=== PATIENT | female | born 1985 | race Caucasian/White ===

== ENCOUNTER 2016-08-29 13:30 | Emergency (ER) | payer OTHER ==
[2016-08-29 13:46] VITALS: BP 138/90; PULSE 88; TEMP 98.3; BMI 29.2
[2016-08-29] MEDS ORDERED: ACETAMINOPHEN 325 MG TABLET (FP) PO ONE (14:22)
--- NOTE | 2016-08-29 14:22 | PDOC ---
History of Present Illness - General Chief Complaint: Cold Symptoms Stated Complaint: FLU SYMPTOMS, 12 WKS Time Seen by Provider: 08/29/16 14:14 History Source: Patient Exam Limitations: No Limitations - History of Present Illness Initial Comments: CHIEF COMPLAINT: 31 y/o afebrile, approximately 12 week female, c/o frontal headache, sinus pressure, dry cough x 4 days. HISTORY OF PRESENT ILLNESS: The patient denies f/c, runny nose, sore throat, n/ v/d, CP, SOB, abd pain, vaginal bleeding, abnormal vaginal discharge, hematuria , dysuria. SHe has not taken any medications for her symptoms. Vital signs on arrival are within normal limits. REVIEW OF SYSTEMS: GENERAL/CONSTITUTIONAL: No fever/chills. No weakness. No weight change. HEAD, EYES, EARS, NOSE AND THROAT: No change in vision. No ear pain or discharge. No sore throat. +sinus pressure CARDIOVASCULAR: No chest pain or shortness of breath. RESPIRATORY: +dry cough. No wheezing or hemoptysis. GASTROINTESTINAL: No abd pain, nausea, vomiting, diarrhea. GENITOURINARY: No dysuria, frequency, or change in urination. MUSCULOSKELETAL: No joint or muscle swelling or pain. No neck or back pain. SKIN: No rash or easy bruising. NEUROLOGIC: +headache. No vertigo, loss of consciousness, or loss of sensation. PHYSICAL EXAM: GENERAL: The patient is awake, alert, and fully oriented, in no acute distress. SHe is well appearing and ambulatory. No cough while in the ER. HEAD: Normal with no signs of trauma. TTP of frontal and maxillary sinuses. ENT: Pupils equal, round and reactive to light, extraocular movements intact, sclera anicteric, conjunctiva clear. No nasal congestion or rhinorrhea. TMs and ear canals normal b/l. No tonsilar erythema or edema. LUNGS: Clear to auscultation bilaterally. Normal excursion. No respiratory distress or use of accessory muscles. CV: RRR, S1/S2, no MRG. Cap refill < 2 sec. ABDOMEN: Soft, gravid, non-tender even to deep palpation, no hepatomegaly or splenomegaly, no masses. EXTREMITIES: Normal range of motion, no edema. NEUROLOGICAL: Normal speech, normal gait. CN II-XII grossly intact. PSYCH: Normal mood, normal affect. SKIN: Warm, dry, normal turgor, no rashes or lesions noted. Past History - Past Medical History Allergies/Adverse Reactions: Allergies Allergy/AdvReac Type Severity Reaction Status Date / Time No Known Allergies Allergy Verified 08/29/16 13:42 Home Medications: Ambulatory Orders Vits #93/Iron Fum/FA [ Formula Tablet] 1 each PO DAILY Other medical history: DENIES. - Psycho/Social/Smoking Cessation Hx Suicidal Ideation: No Smoking History: Never smoked *Physical Exam - Vital Signs Last Vital Signs Temp Pulse Resp BP Pulse Ox 98.3 F 88 19 138/90 100 08/29/16 13:42 08/29/16 13:42 08/29/16 13:42 08/29/16 13:42 08/29/16 13:42 Medical Decision Making - Medical Decision Making A/P: 31 y/o female with sinus headache and allergy symptoms. Plan is as follows: 1. PO tylenol 2. PO claritin Will discharge to home with instructions to take tylenol for headache, claritin and robitussin for sinus pressure and cough, all of which are safe to use in . Suggested she drink plenty of fluids, follow up with her doctor this week and return to the ER with any worsening or concerning symptoms. The patient verbalizes understanding of all instructions, has no further questions and is awaiting discharge. *DC/Admit/Observation/Transfer Diagnosis at time of Disposition: Seasonal allergies Qualifiers: Allergic rhinitis trigger: unspecified Qualified Code(s): J30.2 - Other seasonal allergic rhinitis Headache Qualifiers: Headache type: unspecified Headache chronicity pattern: acute headache Intractability: not intractable Qualified Code(s): R51 - Headache - Discharge Dispostion Disposition: HOME Condition at time of disposition: Good - Patient Instructions Printed Discharge Instructions: DI for Headache, Allergies (Alternative Therapy ) Additional Instructions: Discharge Instructions: -You can take Tylenol every 4 hours for headache -You can take over the counter Claritin daily for pressure behind your eyes, nasal congestion and cough -You can take Robitussin for cough -Please follow up with your doctor tomorrow -Return to the ER with any worsening or concerning symptoms. Print Language: ZAMBIAN
[2016-08-29] MEDS ORDERED: LORATADINE 10 MG TABLET PO ONE (14:24)
[2016-08-29] MEDS ORDERED: ACETAMINOPHEN 325 MG TABLET (FP) ONE (14:33)
[2016-08-29] MEDS ORDERED: LORATADINE 10 MG TABLET ONE (14:33)
== END 2016-08-29 14:36 | disposition home or self-care (01) ==
LOC: JERFT 13:30
DX: O99.89 Other specified diseases and conditions complicating pregnancy, childbirth and the puerperium (principal); J30.2 Other seasonal allergic rhinitis; R51 Headache; Z3A.12 12 weeks gestation of pregnancy
CPT/HCPCS: 99281-25

== ENCOUNTER 2016-10-12 09:15 | Emergency (ER) | payer OTHER ==
[2016-10-12 09:21] VITALS: BMI 29.9
--- NOTE | 2016-10-12 10:00 | PDOC ---
History of Present Illness - General History Source: Patient Exam Limitations: No Limitations - History of Present Illness Initial Comments: 10/12/16 10:00 The patient is a 31 year old female presenting with her who is 17 weeks , A2 (1 ectopic ), with a significant past medical history of, who presents to the emergency department with vaginal bleeding. She also reports mild left lower abdominal pain, without radiation or modifying factors. She denies any history of C-Sections and notes her births have been vaginal. She notes that her ectopic was in 03/2016 and she was medically treated, not requiring surgery. The patient denies chest pain, shortness of breath, headache and dizziness. Denies fever, chills, nausea, vomit, diarrhea and constipation. Denies dysuria, frequency, urgency and hematuria. Allergies: None Past surgical history: None reported Social history: No alcohol, tobacco or drug use reported <Caden Keith - Last Filed: 10/12/16 10:00> <Sis Landa - Last Filed: 10/12/16 16:48> - General Chief Complaint: Vaginal Bleeding Stated Complaint: VAGINAL BLEEDING (17 WKS ) Time Seen by Provider: 10/12/16 09:26 Past History <Caden Keith - Last Filed: 10/12/16 10:00> - Past Medical History Other medical history: none - Reproductive History Is Patient Now?: Yes (17 wks) - Psycho/Social/Smoking Cessation Hx Anxiety: No Suicidal Ideation: No Smoking History: Never smoked Have you smoked in the past 12 months: No Information on smoking cessation initiated: No Hx Alcohol Use: No Drug/Substance Use Hx: No <Sis Landa - Last Filed: 10/12/16 16:48> - Past Medical History Allergies/Adverse Reactions: Allergies Allergy/AdvReac Type Severity Reaction Status Date / Time No Known Allergies Allergy Verified 10/12/16 09:18 Home Medications: Ambulatory Orders Vits #93/Iron Fum/FA [ Formula Tablet] 1 each PO DAILY Review of Systems - Review of Systems Comments:: 10/12/16 10:01 GENERAL/CONSTITUTIONAL: No fever or chills. No weakness. HEAD, EYES, EARS, NOSE AND THROAT: No change in vision. No ear pain or discharge. No sore throat. CARDIOVASCULAR: No chest pain or shortness of breath RESPIRATORY: No cough, wheezing, or hemoptysis. GASTROINTESTINAL: No nausea, vomiting, diarrhea or constipation. GENITOURINARY: (+) Vaginal bleeding. No dysuria, frequency, or change in urination. MUSCULOSKELETAL: No joint or muscle swelling or pain. No neck or back pain. SKIN: No rash NEUROLOGIC: No headache, vertigo, loss of consciousness, or change in strength/ sensation. ENDOCRINE: No increased thirst. No abnormal weight change HEMATOLOGIC/LYMPHATIC: No anemia, easy bleeding, or history of blood clots. ALLERGIC/IMMUNOLOGIC: No hives or skin allergy. <Caden Keith - Last Filed: 10/12/16 10:00> *Physical Exam - Vital Signs Last Vital Signs Temp Pulse Resp BP Pulse Ox 98.1 F 100 H 18 132/75 100 10/12/16 09:18 10/12/16 09:18 10/12/16 09:18 10/12/16 09:18 10/12/16 09:18 - Physical Exam Comments: 10/12/16 10:01 GENERAL: Awake, alert, and fully oriented, in no acute distress HEAD: No signs of trauma, normocephalic, atraumatic EYES: PERRLA, EOMI, sclera anicteric, conjunctiva clear ENT: Auricles normal inspection, hearing grossly normal, nares patent, oropharynx clear without exudates. Moist mucosa NECK: Normal ROM, supple, no lymphadenopathy, JVD, or masses LUNGS: No distress, speaks full sentences, clear to auscultation bilaterally HEART: Regular rate and rhythm, normal S1 and S2, no murmurs, rubs or gallops, peripheral pulses normal and equal bilaterally. ABDOMEN: Soft, nontender, normoactive bowel sounds. No guarding, no rebound. No masses EXTREMITIES: Normal inspection, Normal range of motion, no edema. No clubbing or cyanosis. NEUROLOGICAL: Cranial nerves II through XII grossly intact. Normal speech, normal gait, no focal sensorimotor deficits SKIN: Warm, Dry, normal turgor, no rashes or lesions noted. <Caden Keith - Last Filed: 10/12/16 10:00> - Vital Signs Last Vital Signs Temp Pulse Resp BP Pulse Ox 98.1 F 100 H 18 132/75 100 10/12/16 09:18 10/12/16 09:18 10/12/16 09:18 10/12/16 09:18 10/12/16 09:18 - Physical Exam Comments: : No external lesions. Small amt clotted blood in the vault. Os closed. Adnexa nontender. <Sis Landa - Last Filed: 10/12/16 16:48> ED Treatment Course - LABORATORY CBC & Chemistry Diagram: 10/12/16 09:50 10/12/16 09:50 <Sis Landa - Last Filed: 10/12/16 16:48> Medical Decision Making - Medical Decision Making Sono results d/w patient. Recommended pelvic rest until she can f/u with her scientific database curator. <Sis Landa - Last Filed: 10/12/16 16:48> *DC/Admit/Observation/Transfer - Attestations Scribe Attestion: 10/12/16 10:02 Documentation prepared by Caden Keith, acting as medical records technician for Sis Landa MD <Caden Keith - Last Filed: 10/12/16 10:00> - Discharge Dispostion Admit: No <Sis Landa - Last Filed: 10/12/16 16:48> Diagnosis at time of Disposition: Vaginal bleeding before 22 weeks gestation - Discharge Dispostion Disposition: HOME Condition at time of disposition: Stable - Referrals Referrals: Sis Davey [Primary Care Provider] - - Patient Instructions Printed Discharge Instructions: DI for Vaginal Bleeding During
[2016-10-12 10:05] LABS: BASOPHIL 0.5 % (0-2.0); EOSINOPHIL 1.4 % (0-4.5); MCH 27.4 pg (25.7-33.7); MCHC 32.5 g/dl (32.0-36.0); MEAN CELL VOLUME 84.3 fl (80-96); MEAN PLT VOLUME 8.7 fl (7.5-11.1); NEUTROPHILS 71.2 % (42.8-82.8); PLATELET COUNT 250 K/MM3 (134-434); RDW 14.6 % (11.6-15.6); WHITE BLOOD COUNT 7.7 K/mm3 (4.0-10.0)
[2016-10-12 11:26] LABS: ALBUMIN 2.9 g/dl (3.4-5.0); ANION GAP 11 (8-16); CALCIUM 9.3 mg/dL (8.5-10.1); CO2 22 mmol/L (21-32); CREATININE 0.5 mg/dL (0.55-1.02); GLUCOSE,RANDOM 80 mg/dL (74-106); SGOT/AST 19 U/L (15-37); SGPT/ALT 17 U/L (12-78)
[2016-10-12 11:42] LABS: ALK PHOS 54 U/L (45-117); BILIRUBIN,TOTAL 0.2 mg/dL (0.2-1.0); TOT PROT 6.4 g/dl (6.4-8.2)
[2016-10-12 13:00] LABS: URINE APPEARANCE CLEAR; URINE BILIRUBIN NEGATIVE (NEGATIVE); URINE BLOOD 1+ (NEGATIVE); URINE COLOR LTYELLOW; URINE GLUCOSE (UA) NEGATIVE (NEGATIVE); URINE KETONE NEGATIVE (NEGATIVE); URINE LEUK ESTERASE NEGATIVE (NEGATIVE); URINE NITRITE NEGATIVE (NEGATIVE); URINE PROTEIN NEGATIVE (NEGATIVE); URINE UROBILINOGEN NEGATIVE E.U./dl (0.2-1.0)
[2016-10-12 13:01] VITALS: BP 116/70; PULSE 74; TEMP 97.8
[2016-10-12 13:03] LABS: URINE MUCUS RARE; URINE RBC 1 /hpf (0-3); URINE WBC 1 /hpf (3-5)
== END 2016-10-12 13:45 | disposition home or self-care (01) ==
LOC: JER 09:15
DX: O26.892 Other specified pregnancy related conditions, second trimester (principal); Z3A.17 17 weeks gestation of pregnancy; N93.9 Abnormal uterine and vaginal bleeding, unspecified
CPT/HCPCS: 36415; 76801-TC; 80053; 81003; 81015; 84702; 85025; 86850; 86900; 86901; 99283-25

== ENCOUNTER 2018-03-05 10:17 | Emergency (ER) | payer OTHER ==
[2018-03-05 10:23] VITALS: BP 119/74; PULSE 82; TEMP 98.1; BMI 27.1
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
[2018-03-05] MEDS ORDERED: diazePAM 5 MG TABLET PO ONE (11:04)
[2018-03-05] MEDS ORDERED: KETOROLAC TROMETHAMINE 60 MG/2 ML VIAL IM ONE (11:04)
[2018-03-05] MEDS ORDERED: KETOROLAC TROMETHAMINE 60 MG/2 ML VIAL ONE (11:06)
[2018-03-05] MEDS ORDERED: diazePAM 5 MG TABLET ONE (11:06)
== END 2018-03-05 11:16 | disposition home or self-care (01) ==
LOC: JERFT 10:17
PROC: 3E0233Z Introduction of Anti-inflammatory into Muscle, Percutaneous Approach (ICD-10-PCS; principal; 2018-03-05)
DX: M54.42 Lumbago with sciatica, left side (principal); M54.41 Lumbago with sciatica, right side
CPT/HCPCS: 84703; 99281-25

== ENCOUNTER 2018-08-15 09:03 | Emergency (ER) | payer OTHER ==
[2018-08-15 09:10] VITALS: BP 123/70; PULSE 68; TEMP 97.8; BMI 27.8
[2018-08-15] MEDS ORDERED: KETOROLAC TROMETHAMINE 60 MG/2 ML VIAL IM ONE (09:33)
[2018-08-15] MEDS ORDERED: KETOROLAC TROMETHAMINE 60 MG/2 ML VIAL ONE (09:35)
[2018-08-15 09:38] LABS: EPI CELLS 4.6 /HPF (0-5/HPF); URINE APPEARANCE CLEAR; URINE BILIRUBIN NEGATIVE (NEGATIVE); URINE CASTS 2 /lpf (0-8); URINE COLOR YELLOW; URINE GLUCOSE (UA) NEGATIVE (NEGATIVE); URINE KETONE NEGATIVE (NEGATIVE); URINE LEUK ESTERASE TRACE (NEGATIVE); URINE NITRITE NEGATIVE (NEGATIVE); URINE PROTEIN NEGATIVE (NEGATIVE); URINE RBC 2 /hpf (0-4); URINE UROBILINOGEN 0.2 mg/dL (0.2-1.0); URINE WBC 3 /hpf (0-5)
--- NOTE | 2018-08-15 09:38 | PDOC ---
History of Present Illness - General Chief Complaint: Urinary Problem Stated Complaint: LOWER BACK PAIN Time Seen by Provider: 08/15/18 09:33 History Source: Patient (back pain X 2 days, + urinary frequency as well) Exam Limitations: No Limitations - History of Present Illness Pain Location: reports: none, back Modifying Factors: improves with: None Associated Symptoms (Fall): denies symptoms Past History - Travel Traveled outside of the country in the last 30 days: No Close contact w/someone who was outside of country & ill: No - Past Medical History Allergies/Adverse Reactions: Allergies Allergy/AdvReac Type Severity Reaction Status Date / Time No Known Allergies Allergy Verified 08/15/18 09:11 Home Medications: Ambulatory Orders Cyclobenzaprine HCl 10 mg PO BIDAC #20 tablet 08/15/18 Naproxen 375 mg PO BID 10 Days #20 tablet 08/15/18 COPD: No - Reproductive History (#): 6 Para: 3 Ectopic : Yes (x 1) Spontaneous : 1 - Suicide/Smoking/Psychosocial Hx Smoking History: Never smoked Have you smoked in the past 12 months: No Hx Alcohol Use: No Drug/Substance Use Hx: No Review of Systems - Review of Systems Is the patient limited Finnish proficient: No Constitutional: No: Chills, Fever ABD/GI: No: Abdominal Distended, Abd. Pain w/ defecation, Blood Streaked Bowels , Nausea, Vomiting : Yes: Frequency. No: Burning, Dysuria, Discharge, Flank Pain, Hematuria, Incontinence, Pain, Urgency Musculoskeletal: Yes: Back Pain. No: Muscle Pain, Muscle Weakness, Joint Stiffness Integumentary: No: Bruising *Physical Exam - Vital Signs Last Vital Signs Temp Pulse Resp BP Pulse Ox 97.8 F 68 16 123/70 100 08/15/18 09:07 08/15/18 09:07 08/15/18 09:07 08/15/18 09:07 08/15/18 09:07 - Physical Exam General Appearance: Yes: Nourished Respiratory/Chest: positive: Lungs Clear, Normal Breath Sounds Cardiovascular: positive: Regular Rhythm, Regular Rate, S1, S2 Gastrointestinal/Abdominal: positive: Normal Bowel Sounds Musculoskeletal: positive: Muscle Spasm (LS spine), Other (+ paraspinal tenderness noted in LS spine, + SLR @ 45 degrees b/l) Integumentary: positive: Normal Color Neurologic: positive: special needs caregiver II-XII NML intact, Fully Oriented, Alert Medical Decision Making - Medical Decision Making 08/15/18 09:36 33 years old female with no prior medical history presents with lower back pain and intermittent urinary frequency for 3 days. Patient denies any trauma any heavy lifting,bowel bladder incontinence or saddle anesthesia. She took Flexeril yesterday with little relief to the pain. Examination consistent with paraspinal tenderness in the lumbosacral region positive straight leg raise at 45 bilateral. Stable gait distal obvious weakness on exam. Workup included preg tests,urinalysis Toradol given for pain control disposition pending pt reassessed after meds, felt much better UA wnl 08/15/18 13:36 *DC/Admit/Observation/Transfer Diagnosis at time of Disposition: Back pain Qualifiers: Back pain location: low back pain Chronicity: acute Back pain laterality: unspecified Sciatica presence: unspecified whether sciatica present Qualified Code(s): M54.5 - Low back pain - Discharge Dispostion Disposition: HOME Condition at time of disposition: Stable - Prescriptions Prescriptions: Cyclobenzaprine HCl 10 mg PO BIDAC #20 tablet Naproxen 375 mg PO BID 10 Days #20 tablet - Referrals Referrals: Sis Davey [Primary Care Provider] - - Patient Instructions Printed Discharge Instructions: DI for Low Back Pain Additional Instructions: Follow up with primary care doctor Return to the Emergency Department if worsening symptoms occurs - Post Discharge Activity
[2018-08-15 09:39] LABS: HCG,QUALITATIVE URINE Negative
== END 2018-08-15 10:12 | disposition home or self-care (01) ==
LOC: JERFT 09:03
PROC: 3E0233Z Introduction of Anti-inflammatory into Muscle, Percutaneous Approach (ICD-10-PCS; principal; 2018-08-15)
DX: M54.5 Low back pain (principal); R35.0 Frequency of micturition
CPT/HCPCS: 81003; 84703; 87086; 96372; 99281-25

== ENCOUNTER 2019-04-23 09:22 | Emergency (ER) | payer OTHER ==
[2019-04-23 09:34] VITALS: BP 106/70; PULSE 81; TEMP 98.2; BMI 28.8
[2019-04-23] MEDS ORDERED: DEXAMETHASONE LIQUID 0.5 MG/5 ML PO ONE (10:47)
[2019-04-23] MEDS ORDERED: ALBUTEROL SO4 2.5/IPRATROPIUM 0.5 INH SOL 3 ML VIAL.NEB. NEB ONE ×2 (10:47→10:54)
[2019-04-23] MEDS ORDERED: DEXAMETHASONE SOD PHOSPHATE 10 MG/1 ML VIAL ONE (10:51)
--- NOTE | 2019-04-23 11:43 | PDOC ---
History of Present Illness - General Chief Complaint: Sore Throat Stated Complaint: FEVER/ COUGHING/ CONGESTED Time Seen by Provider: 04/23/19 10:15 History Source: Patient Exam Limitations: No Limitations Past History - Travel Traveled outside of the country in the last 30 days: No Close contact w/someone who was outside of country & ill: No - Past Medical History Allergies/Adverse Reactions: Allergies Allergy/AdvReac Type Severity Reaction Status Date / Time No Known Allergies Allergy Verified 04/23/19 09:34 Home Medications: Ambulatory Orders Cyclobenzaprine HCl 10 mg PO BIDAC #20 tablet 08/15/18 Naproxen 375 mg PO BID 10 Days #20 tablet 08/15/18 Albuterol Sulfate Inhaler - [Ventolin HFA Inhaler -] 1 - 2 inh PO Q4H #1 inhaler 04/23/19 Methylprednisolone [Medrol Dose Andi] 4 mg PO ASDIR #21 tablet 04/23/19 Oseltamivir Phosphate [Tamiflu] 75 mg PO BID #10 capsule 04/23/19 COPD: No - Reproductive History (#): 6 Para: 3 Ectopic : Yes (x 1) Spontaneous : 1 - Psycho Social/Smoking Cessation Hx Smoking History: Never smoked Have you smoked in the past 12 months: No Information on smoking cessation initiated: No Hx Alcohol Use: No Drug/Substance Use Hx: No Review of Systems - Review of Systems Able to Perform ROS?: Yes Comments:: 04/23/19 11:37 CONSTITUTIONAL: Present: Fever, chills, body aches Absent: diaphoresis, generalized weakness, malaise, loss of appetite HEENT: Present: rhinorrhea, nasal congestion, throat pain. Absent: difficulty swallowing, mouth swelling, ear pain, eye pain, visual Changes CARDIOVASCULAR: Absent: chest pain, loss of consciousness, palpitations, irregular heart rate, peripheral edema RESPIRATORY: Present: Cough Absent: shortness of breath, dyspnea with exertion, orthopnea, wheezing, stridor, hemoptysis GASTROINTESTINAL: Absent: abdominal pain, abdominal distension, nausea, vomiting, diarrhea, constipation, melena, hematochezia SKIN: Absent: rash, itching, pallor NEUROLOGIC: Present: headache Absent: focal weakness or paresthesias, dizziness, unsteady gait, seizure, mental status changes, bladder or bowel incontinence Is the patient limited Macedonian proficient: No *Physical Exam - Vital Signs Last Vital Signs Temp Pulse Resp BP Pulse Ox 98.2 F 81 14 106/70 99 04/23/19 09:32 04/23/19 09:32 04/23/19 09:32 04/23/19 09:32 04/23/19 09:32 - Physical Exam 04/23/19 11:37 GENERAL: Well developed, well nourished. Awake and alert. No acute distress. HEENT: Normocephalic, atraumatic. PERRLA, EOMI. No conjunctival pallor. Sclera are non- icteric. Moist mucous membranes. Oropharynx is with a white patch to the r tonsil, no erythema. NECK: Supple. Full ROM. No lymphadenopathy. CARDIOVASCULAR: Regular rate and rhythm. No murmurs, rubs, or gallops. Distal pulses are 2+ and symmetric. PULMONARY: No evidence of respiratory distress. Lungs clear to auscultation bilaterally with fair aeration to the bases. No wheezing, rales or rhonchi. MUSCULOSKELETAL Normal range of motion at all joints. No bony deformities or tenderness. No CVA tenderness. EXTREMITIES: No cyanosis. No clubbing. No edema. No calf tenderness. SKIN: Warm and dry. Normal capillary refill. No rashes. No jaundice. NEUROLOGICAL: Alert, awake, appropriate. Cranial nerves 2-12 intact. No deficits to light touch and temperature in face, upper extremities and lower extremities. No motor deficits in the in face, upper extremities and lower extremities. Normoreflexic in the upper and lower extremities. Normal speech. Toes are down- going bilaterally. Gait is normal without ataxia. PSYCHIATRIC: Cooperative. Good eye contact. Appropriate mood and affect. ED Treatment Course - Medications Given in the ED: ED Medications Discontinued Medications Generic Name Dose Route Start Last Admin Trade Name Freq PRN Reason Stop Dose Admin Albuterol/Ipratropium 1 amp 04/23/19 10:47 04/23/19 10:57 Duoneb - NEB 04/23/19 10:48 1 amp ONCE ONE Administration Dexamethasone 10 mg 04/23/19 10:47 04/23/19 10:51 Decadron Liquid - PO 04/23/19 10:48 10 mg ONCE ONE Administration Medical Decision Making - Medical Decision Making 04/23/19 11:38 The patient is a 33-year-old female no past medical history who presents to the ER today for throat pain, fever, cough and chest tightness for 1 week. She states that she has been taking Tylenol with Sudafed with some relief of her symptoms. She states that now her son has similar symptoms and her daughter is also sick. Denies nausea, vomiting, diarrhea, earache. A/P: Flulike symptoms/bronchitis On exam lungs with fair aeration to the bases, no wheezes rales or rhonchi. Her son test positive for flu A. Will cover for prophylactic treatment. Some improvement of her chest tightness with steroids and albuterol inhaler. Will send prescription for outpatient Discharge home with supportive therapy and primary care follow-up I discussed the physical exam findings, ancillary test results and final diagnoses with the patient. I answered all of the patient's questions. The patient was satisfied with the care received and felt comfortable with the discharge plan and treatment plan. The Patient agrees to follow up with the primary care physician/specialist within 24-72 hours. Return precautions were given. Discharge - Discharge Information Problems reviewed: Yes Clinical Impression/Diagnosis: Flu-like symptoms, Bronchitis Condition: Stable Disposition: HOME - Admission No - Follow up/Referral - Patient Discharge Instructions Patient Printed Discharge Instructions: DI for Acute Bronchitis, DI for Influenza -- Adult Additional Instructions: You have bronchitis You were also being treated for the flu since her son has the flu. Take the Tamiflu as directed Please use the inhaler every 4 hours for the next week to help with your cough. Continue taking the prednisone daily for the next 4 days. Continue the tylenol cold and sinus as directed on the box. Please follow up with your primary care doctor in 1 week if your symptoms are not improving. Return to the emergency department if you have fevers, chills, worsening cough, chest pain, worsening shortness of breath or if you have any changes in your symptoms. - Post Discharge Activity Work/Back to School Note: Back to Work
== END 2019-04-23 11:47 | disposition home or self-care (01) ==
LOC: JER 09:22 → JERFT 09:22
PROC: 3E0F7GC Introduction of Other Therapeutic Substance into Respiratory Tract, Via Natural or Artificial Opening (ICD-10-PCS; principal; 2019-04-23)
DX: J40 Bronchitis, not specified as acute or chronic (principal)
CPT/HCPCS: 87070; 87880; 94640; 99281-25

== ENCOUNTER 2019-05-16 16:33 | Emergency (ER) | payer OTHER ==
--- NOTE | 2019-05-16 16:53 | PDOC ---
Rapid Medical Evaluation Time Seen by Provider: 05/16/19 16:40 Medical Evaluation: Allergies Allergy/AdvReac Type Severity Reaction Status Date / Time No Known Allergies Allergy Verified 04/23/19 09:34 05/16/19 16:50 CC: urinary urgency with suprapubic pain radiating to lower back PE: No CVAT. Orders: urine Patient will proceed to the ED for further evaluation. Discharge Disposition - Diagnosis Suprapubic pain, acute - Referrals - Patient Instructions - Post Discharge Activity
[2019-05-16 16:54] VITALS: BP 140/87; PULSE 86; TEMP 98.1; BMI 27.4
[2019-05-16] MEDS ORDERED: ACETAMINOPHEN 500 MG TABLET (FP) PO ONE (16:54)
[2019-05-16] MEDS ORDERED: ACETAMINOPHEN 325 MG TABLET (FP) ONE (17:22)
[2019-05-16 17:52] LABS: URINE APPEARANCE CLEAR; URINE BILIRUBIN NEGATIVE (NEGATIVE); URINE COLOR YELLOW; URINE GLUCOSE (UA) NEGATIVE (NEGATIVE); URINE KETONE NEGATIVE (NEGATIVE); URINE LEUK ESTERASE NEGATIVE (NEGATIVE); URINE NITRITE NEGATIVE (NEGATIVE); URINE PROTEIN NEGATIVE (NEGATIVE); URINE UROBILINOGEN 0.2 mg/dL (0.2-1.0)
--- NOTE | 2019-05-16 20:52 | PDOC ---
*Physical Exam - Vital Signs Last Vital Signs Temp Pulse Resp BP Pulse Ox 98.1 F 86 18 140/87 100 05/16/19 16:52 05/16/19 16:52 05/16/19 16:52 05/16/19 16:52 05/16/19 16:52 ED Treatment Course - ADDITIONAL ORDERS Additional order review: Laboratory Results 05/16/19 05/16/19 17:04 17:04 Urine Color Yellow Urine Appearance Clear Urine pH 7.0 Ur Specific [place] 1.007 L Urine Protein Negative Urine Glucose (UA) Negative Urine Ketones Negative Urine Blood Negative Urine Nitrite Negative Urine Bilirubin Negative Urine Urobilinogen 0.2 Ur Leukocyte Esterase Negative Urine HCG, Qual Negative - Medications Given in the ED: ED Medications Discontinued Medications Generic Name Dose Route Start Last Admin Trade Name Mandi PRN Reason Stop Dose Admin Acetaminophen 1,000 mg 05/16/19 16:54 05/16/19 17:28 Tylenol - PO 05/16/19 16:55 1,000 mg ONCE ONE Administration Medical Decision Making - Medical Decision Making 05/16/19 20:52 Patient seen by the advanced practice provider under my direct supervision. Ancillary testing reviewed as necessary. I agree with plan as outlined by the advanced practice provider. Discharge - Discharge Information Problems reviewed: Yes Clinical Impression/Diagnosis: Suprapubic pain, acute Condition: Stable Disposition: ELOPED - Follow up/Referral Referrals: ON STAFF,NOT [Primary Care Provider] - - Patient Discharge Instructions - Post Discharge Activity
--- NOTE | 2019-05-19 23:47 | PDOC ---
*Physical Exam - Vital Signs Last Vital Signs Temp Pulse Resp BP Pulse Ox 98.1 F 86 18 140/87 100 05/16/19 16:52 05/16/19 16:52 05/16/19 16:52 05/16/19 16:52 05/16/19 16:52 ED Treatment Course - ADDITIONAL ORDERS Additional order review: 05/16/19 17:04 Urine Culture - Final Urine - Urine Clean Catch NO GROWTH OBTAINED - Medications Given in the ED: ED Medications Discontinued Medications Generic Name Dose Route Start Last Admin Trade Name Mandi PRN Reason Stop Dose Admin Acetaminophen 1,000 mg 05/16/19 16:54 05/16/19 17:28 Tylenol - PO 05/16/19 16:55 1,000 mg ONCE ONE Administration Medical Decision Making - Medical Decision Making 05/16/19 20:00 Found patient sitting on the chair, offered to take her next, however patient does not want to be seen, at which time patient left the emergency room. Discharge - Discharge Information Problems reviewed: Yes Clinical Impression/Diagnosis: Suprapubic pain, acute, Eloped from emergency department Condition: Stable Disposition: ELOPED - Follow up/Referral Referrals: ON STAFF,NOT [Primary Care Provider] - - Patient Discharge Instructions - Post Discharge Activity
== END 2019-05-16 19:30 | disposition left against medical advice (07) ==
LOC: JER 16:33
DX: R10.30 Lower abdominal pain, unspecified (principal)
CPT/HCPCS: 81003; 84703; 87086; 99282-25

== ENCOUNTER 2019-11-14 12:53 | Emergency (ER) | payer OTHER ==
[2019-11-14 13:01] VITALS: BP 132/89; PULSE 83; TEMP 98; BMI 27.9
[2019-11-14] MEDS ORDERED: KETOROLAC TROMETHAMINE 60 MG/2 ML VIAL IM ONE (13:19)
[2019-11-14] MEDS ORDERED: KETOROLAC TROMETHAMINE 60 MG/2 ML VIAL ONE (13:21)
[2019-11-14 14:05] LABS: HCG,QUALITATIVE URINE Negative
[2019-11-14 14:06] LABS: EPI CELLS 11 /uL (0-25.1); HYALINE CASTS 1 /uL (0-3.1); PH,URINE 7.5 (5.0-8.0); URINE APPEARANCE CLEAR; URINE BACTERIA 1276 /uL (0-1359); URINE BILIRUBIN NEGATIVE (NEGATIVE); URINE COLOR YELLOW; URINE GLUCOSE (UA) NEGATIVE (NEGATIVE); URINE KETONE NEGATIVE (NEGATIVE); URINE LEUK ESTERASE 3+ (NEGATIVE); URINE NITRITE NEGATIVE (NEGATIVE); URINE PROTEIN NEGATIVE (NEGATIVE); URINE RBC 27 /uL (0-23.9); URINE UROBILINOGEN 0.2 mg/dL (0.2-1.0); URINE WBC 1159 /uL (0-25.8)
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
== END 2019-11-14 14:30 | disposition home or self-care (01) ==
LOC: JERFT 12:53
PROC: 3E0333Z Introduction of Anti-inflammatory into Peripheral Vein, Percutaneous Approach (ICD-10-PCS; principal; 2019-11-14)
DX: M54.5 Low back pain (principal); G89.29 Other chronic pain
CPT/HCPCS: 81003; 84703; 87086; 87186; 99284-25

== ENCOUNTER 2020-04-16 13:49 | Emergency (ER) | payer OTHER ==
[2020-04-16 14:10] VITALS: BP 143/78; PULSE 69; TEMP 98.1; BMI 25.4
[2020-04-16] MEDS ORDERED: morphine CARPU-JECT 4 MG/1 ML DISP.SYRIN IVPUSH ONE (14:47)
[2020-04-16] MEDS ORDERED: KETOROLAC TROMETHAMINE 60 MG/2 ML VIAL IM ONE (14:47)
[2020-04-16] MEDS ORDERED: MORPHINE SULFATE 2 MG/ML VIAL ONE (14:49)
[2020-04-16] MEDS ORDERED: KETOROLAC TROMETHAMINE 60 MG/2 ML VIAL ONE (14:49)
== END 2020-04-16 17:24 | disposition home or self-care (01) ==
LOC: JERFT 13:49
PROC: 3E0233Z Introduction of Anti-inflammatory into Muscle, Percutaneous Approach (ICD-10-PCS; principal; 2020-04-16)
PROC: 3E033NZ Introduction of Analgesics, Hypnotics, Sedatives into Peripheral Vein, Percutaneous Approach (ICD-10-PCS; 2020-04-16)
DX: M54.5 Low back pain (principal)
CPT/HCPCS: 99284-25

== ENCOUNTER 2021-04-13 16:30 | Emergency (ER) | payer OTHER ==
[2021-04-13 16:48] VITALS: BP 118/82; PULSE 97; TEMP 98.4; BMI 29.2
[2021-04-13] MEDS ORDERED: ACETAMINOPHEN 500 MG TABLET (FP) PO ONE (17:45)
[2021-04-13] MEDS ORDERED: ACETAMINOPHEN 500 MG TABLET (FP) ONE (17:54)
[2021-04-13 19:17] LABS: BASO % 0.4 % (0-2.0); HEMATOCRIT 38.6 % (32.4-45.2); HEMOGLOBIN 12.7 GM/dL (10.7-15.3); LYMPH % 10.4 % (8-40); MCH 28.1 pg (25.7-33.7); MEAN CELL VOLUME 85.1 fl (80-96); MEAN PLT VOLUME 8.7 fl (7.5-11.1); MONO % 9.9 % (3.8-10.2); NEUT % 78.3 % (42.8-82.8); PLATELET COUNT 246 10^3/uL (134-434); RBC 4.53 M/mm3 (3.60-5.2); RDW 13.6 % (11.6-15.6); WHITE BLOOD COUNT 6.5 K/mm3 (4.0-10.0)
[2021-04-13 19:37] LABS: EPI CELLS 21 /uL (0-25.1); HYALINE CASTS 7 /uL (0-3.1); PH,URINE 5.5 (5.0-8.0); URINE APPEARANCE CLOUDY; URINE BACTERIA 4301 /uL (0-1359); URINE BILIRUBIN NEGATIVE (NEGATIVE); URINE COLOR YELLOW; URINE GLUCOSE (UA) NEGATIVE (NEGATIVE); URINE KETONE 1+ (NEGATIVE); URINE LEUK ESTERASE 1+ (NEGATIVE); URINE NITRITE NEGATIVE (NEGATIVE); URINE PROTEIN NEGATIVE (NEGATIVE); URINE RBC 14 /uL (0-23.9); URINE UROBILINOGEN 0.2 mg/dL (0.2-1.0); URINE WBC 142 /uL (0-25.8)
== END 2021-04-13 23:19 | disposition home or self-care (01) ==
LOC: JER 16:30
DX: U07.1 COVID-19 (principal)
CPT/HCPCS: 36415; 76817-TC; 81003; 84702; 85025; 86850; 86900; 86901; 87804; 99284-25; C9803; U0003; U0005